=== PATIENT | male | born 1980 | race Caucasian/White ===

== ENCOUNTER 2017-03-14 05:36 | Day surgery (SDC) | payer OTHER ==
[~2017-03-14] VITALS: Ht 175.3 cm; Wt 108.9 kg
--- NOTE | ~2017-03-14 | O ---
[facility] [place] [place] [address] OPERATIVE REPORT Name: ELDER WHITLEY Room #: 150-6 [facility] M.R.#: [id number] Admission: 03/14/17 Attend Phys: Rakesh Fall MD Discharge: Date of : 84 Report #: [id number] THIS REPORT FOR: //name// CC: EDILBERTO physician/PCP Rakesh Fall DATE OF SERVICE: 03/14/2017 PREOPERATIVE DIAGNOSES: 1. Left knee anterior cruciate ligament tear. 2. Left knee lateral meniscus tear. POSTOPERATIVE DIAGNOSES: 1. Left knee anterior cruciate ligament tear. 2. Left knee lateral meniscus tear. PROCEDURES: 1. Arthroscopically assisted ACL reconstruction with autograft hamstring tendon. 2. Partial lateral meniscectomy. SURGEON: Rakesh Fall M.D. EARLY HEAD START DIRECTOR: Ana Paula Agarwal PA-C. ANESTHESIA: LMA with a femoral nerve block. IMPLANTS: [employer] size 15 Endobutton with a 10 x 25 BioSure Sync sheath and screw. TOURNIQUET TIME: Approximately 95 minutes. COMPLICATIONS: None. SPECIMENS: None. CONDITION UPON LEAVING THE OPERATING ROOM: Stable. INDICATIONS FOR PROCEDURE: The patient is a 36-year-old gentleman who was stepping down off of his truck while at work and injured his left knee. He had an MRI scan showing him to have an anterior cruciate ligament rupture and a lateral meniscus tear and after discussion with him, he elected for ACL reconstruction with autograft hamstring and lateral meniscectomy versus repair. DESCRIPTION OF PROCEDURE: Risks, benefits, alternatives and complications were discussed in detail with the patient including but not limited to risk of [facility] [address] [place] [address] OPERATIVE REPORT Name: ELDER WHITLEY Room #: 150-6 [facility] M.R.#: [id number] Admission: 03/14/17 Attend Phys: Rakesh Fall MD Discharge: Date of : 84 Report #: [id number] anesthesia; risk of damage to nerves, arteries, blood vessels; risk for infection, bleeding, re-rupture and need for reoperation. Informed consent was obtained from the patient. The left knee was appropriately marked in the preoperative holding area. Femoral nerve block was placed by anesthesia. IV Ancef was given for preoperative antibiotics. He was brought to the operating room and placed in supine position on the operating room table. LMA anesthesia was induced without complication. Tourniquet was placed on the left thigh. Examination of left knee was performed, showing him to have a 2+ Kim as well as positive pivot shift test. Left leg was then prepped and draped in the normal sterile fashion. Timeout was performed properly identifying the patient, procedure as well as the instrumentation and implants. All in the operating room were in agreement. Left lower extremity was exsanguinated, tourniquet was inflated. Tourniquet time was approximately 95 minutes. The hamstring graft was harvested first and an incision longitudinally was made over the bursa with a 15 blade through the skin. Dissection was taken down to the fascia and the gracilis and semitendinosus tendons were palpated and dissected out. These were tagged and a tendon stripper was used to harvest them. These were taken to the back table and prepared by my assistant production editor for use as a autograft. Attention was then turned to arthroscopy of the knee. A standard anterolateral portal was established with an 11 blade. Arthroscope was introduced into the patellofemoral compartment. Diagnostic arthroscopy was undertaken. Patellofemoral compartment was visualized and found to be without pathology. Medial gutter was visualized and found to be without pathology. Medial compartment was visualized and medial portal was established under arthroscopic visualization. Probe was introduced into the medial compartment and there was noted to be an intact medial meniscus. The notch was visualized and found to have a near complete rupture of the anterior cruciate ligament. The lateral compartment was visualized and found to have a inner margin radial tear of the posterior horn of the lateral meniscus. This was turned back with an oscillating shaver. Attention was turned back to the notch and a notchplasty was performed after removing the stump of the ACL. A femoral tunnel guide was then placed in the stump of the femoral insertion of the ACL at the approximate 30 o'clock position. The guidewire was then taken up on top of lateral cortex of the femur. A 5-0 drill was then used to drill the tunnel for the Endobutton. The graft was sized and found to be 9.5, until the 9.5 flexible reamer was used to drill the socket for the femur. A #5 FiberWire was then taken up into the femoral tunnel for later retrieval and passage of the graft. After this, the tibial tunnel guide was placed in the stump in the bishop paiute ACL and a guidepin was taken up in between the intercondylar spines. This was then reamed with an 8.5 reamer and then with a 9.5 reamer. The passing suture was then brought out the tibial tunnel and the graft was then taken up and seated into the femoral tunnel. The Endobutton was flipped and there was excellent fixation on the femoral side. The knee was then cycled through range of motion to pretension [address] [address] OPERATIVE REPORT Name: ELDER WHITLEY [id number] Admission: 03/14/17 Attend Phys: Rakesh Fall MD Discharge: Date of : 84 Report #: [id number] the graft and it was fixed on the tibial side with a ClearContext Sync 10 x 25 screw and sheath. After this, examination of the knee was performed and found to have a negative Kim, negative pivot shift and full range of motion and the graft was visualized arthroscopically and found to have excellent tension. The wounds were thoroughly irrigated with normal saline and closed with 0 Vicryl, 2-0 Vicryl, 3-0 Monocryl and Steri-Strips. Soft dressing of Adaptic, 4 x 4, Webril, Jae wrap and hinged knee brace, unlocked were applied. The patient tolerated this procedure well and went to the recovery room under the care of anesthesia postoperatively. By: [id number] Rakesh Fall MD /nt
[~2017-03-14 05:36] MED LIST: MOBIC15 MG PO; OXYCODONE HCL 55 MG PO; ZYRTEC10 M5 PO
[2017-03-14 08:30] VITALS: BP 136/83
[2017-03-14 12:19] VITALS: BP 136/83
== END 2017-03-14 14:00 | disposition home or self-care (01) ==
LOC: OR 05:36 → TBA 05:38 → OR 09:21
DX: S83.512A Sprain of anterior cruciate ligament of left knee, initial encounter (principal); S83.282A Other tear of lateral meniscus, current injury, left knee, initial encounter; X58.XXXA Exposure to other specified factors, initial encounter; Y93.89 Activity, other specified; Y92.89 Other specified places as the place of occurrence of the external cause; Y99.9 Unspecified external cause status; F17.210 Nicotine dependence, cigarettes, uncomplicated
CPT/HCPCS: 50101; 50176; 50386; 50405; 50612; 50954; 51038; 53337; 54170; 55430; 56524; 56527; 56530; 56531; 62110; 62900; 64042; 64043; 70005